=== PATIENT | female | born 1940 | race African-American/Black ===

== ENCOUNTER 2024-08-29 09:57 | Emergency (ER) | payer OTHER ==
[~2024-08-29] VITALS: Ht 172.7 cm; Wt 70.0 kg
[2024-08-29 09:59] VITALS: TEMP 97.5; O2SAT 98
[2024-08-29 11:25] LABS: HEMATOCRIT. 38.4 % (36.0-48.0); HEMOGLOBIN. 12.7 g/dL (12.0-16.0); MEAN CORPUSCULAR HEMOGLOBIN 30.7 pg (28.0-32.0); MEAN CORPUSCULAR HGB CONC 33.2 g/dL (31.0-37.0); MEAN CORPUSCULAR VOLUME 92.4 fL (81.0-99.0); MEAN PLATELET VOLUME 9.2 fl (7.4-10.4); PLATELET 151 x1000/uL (130-400); RED BLOOD CELL COUNT 4.15 mill/uL (4.2-5.4); RED CELL DISTRIBUTION WIDTH 13.3 % (11.6-14.6); WHITE BLOOD COUNT 8.3 x1000/uL (4.5-11.0)
[2024-08-29 11:27] LABS: DIFFERENTIAL COMMENT 1
[2024-08-29] MEDS: SODIUM CHLORIDE 0.9% 1,000 ML IV ONE (11:30)
[2024-08-29 13:03] LABS: CHLORIDE 109 mEq/L (98-107); SODIUM 138 mEq/L (136-145)
[2024-08-29 13:04] LABS: CARBON DIOXIDE 21 mEq/L (21-32)
[2024-08-29 13:05] LABS: CALCIUM 8.4 mg/dL (8.7-10.4)
[2024-08-29 13:09] LABS: CREATININE 0.9 mg/dL (0.6-1.0); GLUCOSE 91 mg/dL (70-105); UREA NITROGEN BLOOD 27 mg/dL (9-23)
[2024-08-29 13:10] LABS: TROPONIN I HIGH SENSITIVITY 11 ng/L (3.0-34)
[2024-08-29] MEDS ORDERED: ONDA-239 PO (13:36)
[2024-08-29 14:15] VITALS: BP 143/46; PULSE 94; RESP 18; O2SAT 95
[2024-08-29 23:58] LABS: PLATELET ESTIMATE NORMAL; TOXIC GRANULATION 1+
== END 2024-08-29 14:32 | disposition home or self-care (01) ==
LOC: ER 10:12
DX: R53.1 Weakness (principal); E11.9 Type 2 diabetes mellitus without complications; I10 Essential (primary) hypertension; Z98.890 Other specified postprocedural states
CPT/HCPCS: 99284; 96360; 80048; 85025; 84484; 36415; 93005; J7030; A4663; A4606

== ENCOUNTER 2025-07-26 22:42 | Emergency (ER) | payer OTHER ==
[~2025-07-26] VITALS: Ht 165.1 cm; Wt 64.0 kg
[~2025-07-26 22:42] MED LIST: ONDA-239 PO
[2025-07-26 22:49] VITALS: O2SAT 98
[2025-07-26] MEDS ORDERED: ACETAMINOPHEN 10MG/ML SYR IV ONE (23:15)
[2025-07-27] MEDS: DIPHENHYDRAMINE 50MG/ML VIAL IV ONE (00:23)
[2025-07-27] MEDS: METOCLOPRAMIDE HCL 10MG/2ML VIAL IV ONE (00:23)
[2025-07-27] MEDS: ACETAMINOPHEN 1000MG/100ML 100 ML IV ONE (01:16)
[2025-07-27 02:23] LABS: CREATININE 1.0 mg/dL (0.6-1.0); UREA NITROGEN BLOOD 16 mg/dL (9-23)
[2025-07-27 03:25] LABS: BASOPHILS % 0.4 % (0.0-2.0); EOSINOPHILS % 0.8 % (0.0-5.0); HEMATOCRIT. 38.7 % (36.0-48.0); HEMOGLOBIN. 12.8 g/dL (12.0-16.0); LYMPHOCYTES % 30.1 % (20.0-50.0); MEAN PLATELET VOLUME 8.4 fl (7.4-10.4); MONOCYTES % 7.1 % (2.0-8.0); NEUTROPHILS % 61.6 % (40.0-76.0); PLATELET 192 x1000/uL (130-400); RED BLOOD CELL COUNT 4.14 mill/uL (4.2-5.4); RED CELL DISTRIBUTION WIDTH 12.4 % (11.6-14.6)
[2025-07-27 05:36] VITALS: BP 151/78; PULSE 79; RESP 20; TEMP 37.1; O2SAT 99
== END 2025-07-27 05:38 | disposition home or self-care (01) ==
LOC: ER 22:42
DX: G43.909 Migraine, unspecified, not intractable, without status migrainosus (principal); E11.9 Type 2 diabetes mellitus without complications; I10 Essential (primary) hypertension; Z85.3 Personal history of malignant neoplasm of breast; Z98.890 Other specified postprocedural states
CPT/HCPCS: 99285; 70450; 80048; 85025; 36415; 96365; 96375; J1200; J2765; J0131